=== PATIENT | female | born 1990 | race Hispanic/Latino ===

== ENCOUNTER 2018-12-12 19:17 | Emergency (ER) | payer OTHER | END 2018-12-12 20:31 | disposition home or self-care (01) | LOC: EDH 19:17 | DX: F41.1 Generalized anxiety disorder (principal); R07.89 Other chest pain | CPT/HCPCS: 71046; 93005 ==

== ENCOUNTER 2019-04-22 12:41 | Emergency (ER) | payer SELFPAY ==
[2019-04-22] MEDS ORDERED: MAG HYDROX/AL HYDROX/SIMETH ES 30 ML SUSP UDCUP ONE (13:56)
[2019-04-22] MEDS ORDERED: LIDOCAINE HCL 2% VISCOUS 15 ML UDCUP ONE (13:56)
[2019-04-22] MEDS ORDERED: PENICILLIN G BENZATHINE LA 1.2 MILUNITS/2 ML SYG ONE (13:57)
== END 2019-04-22 14:14 | disposition home or self-care (01) ==
LOC: EDH 12:41
DX: J02.9 Acute pharyngitis, unspecified (principal); H10.9 Unspecified conjunctivitis
CPT/HCPCS: 96372; 99283; J0561

== ENCOUNTER 2019-10-05 10:54 | Emergency (ER) | payer SELFPAY ==
[2019-10-05 11:23] LABS: APPEARANCE,URINE CLEAR (CLEAR); BILIRUBIN,URINE SMALL (NEGATIVE); COLOR,URINE ORANGE (YELLOW); GLUCOSE, URINE (UA) 100 mg/dL (NEGATIVE); KETONES,URINE NEGATIVE (NEGATIVE); LEUKOCYTE ESTERASE ,URINE MODERATE (NEGATIVE); NITRATE,URINE POSITIVE (NEGATIVE); OCCULT BLOOD,URINE SMALL (NEGATIVE); PROTEIN,URINE 30 mg/dL (NEGATIVE); UROBILINOGEN,URINE >=8.0 mg/dL (0.2-1.0)
[2019-10-05 11:29] LABS: HCG,QUAL RESULT NEGATIVE (NEGATIVE)
[2019-10-05 11:38] LABS: BACTERIA,URINE Rare /HPF (None Seen); RBC,URINE 0-1 /HPF (0-1); SQUAMOUS EPITHELIAL CELL,UR Rare /HPF (0-2)
[2019-10-05] MEDS ORDERED: PHENAZOPYRIDINE HCL 200 MG TABLET ONE (12:04)
[2019-10-05] MEDS ORDERED: CEFTRIAXONE SODIUM 1 GM ONE (12:04)
[2019-10-05] MEDS ORDERED: LIDOCAINE HCL-MPF 1% 2ML VIAL ONE (12:04)
== END 2019-10-05 12:42 | disposition home or self-care (01) ==
LOC: EDH 10:54
DX: N30.00 Acute cystitis without hematuria (principal)
CPT/HCPCS: 81001; 81025; 96372; 99284; J0696; J3490

== ENCOUNTER 2019-11-26 12:30 | Emergency (ER) | payer OTHER ==
[2019-11-26 13:27] LABS: APPEARANCE,URINE Clear (CLEAR); BILIRUBIN,URINE Small (NEGATIVE); COLOR,URINE Dark Yellow (YELLOW); GLUCOSE, URINE (UA) Negative (NEGATIVE); KETONES,URINE Negative (NEGATIVE); LEUKOCYTE ESTERASE ,URINE Moderate (NEGATIVE); NITRATE,URINE Negative (NEGATIVE); OCCULT BLOOD,URINE Negative (NEGATIVE); PH,URINE >=9.0 (5.0-8.0); PROTEIN,URINE Negative (NEGATIVE)
[2019-11-26 13:28] LABS: HCG,QUAL RESULT NEGATIVE (NEGATIVE)
[2019-11-26 13:33] LABS: BACTERIA,URINE Rare /HPF (None Seen); RBC,URINE 0-1 /HPF (0-1); SQUAMOUS EPITHELIAL CELL,UR Moderate /HPF (0-2)
== END 2019-11-26 13:53 | disposition home or self-care (01) ==
LOC: EDH 12:30
DX: N39.0 Urinary tract infection, site not specified (principal); J02.8 Acute pharyngitis due to other specified organisms; B97.89 Other viral agents as the cause of diseases classified elsewhere
CPT/HCPCS: 81001; 81025; 87880